=== PATIENT | female | born 1985 | race Caucasian/White ===

== ENCOUNTER 2020-12-25 12:09 | Outpatient (CLI) | payer OTHER ==
--- NOTE | 2020-12-25 16:42 | XRAY Report ---
PROCEDURE: Hand 3 View LT INDICATIONS: LEFT THUMB PAIN TECHNIQUE: 3 views of the hand(s) acquired. COMPARISON: None FINDINGS: Bones: No fractures or dislocations. No suspicious bony lesions. Soft tissues: No suspicious soft tissue calcifications. IMPRESSION: No acute fracture. No osseous lesion. If symptoms and/or clinical suspicion for pathology continue, f urther assessment with repeat plain films, or advanced imaging (e.g., CT, MRI, or bone scan) is recom mended for further assessment. Reviewed by: Sola Perales MD on 12/25/2020 4:41 PM PDT Approved by: Sola Perales MD on 12/25/2020 4:41 PM PDT Station ID: [id number]
== END 2020-12-25 12:10 | disposition home or self-care (01) ==
LOC: DI.N 12:09
PROVIDERS: ATTEND Family Medicine
DX: M79.644 Pain in right finger(s) (principal)